=== PATIENT | female | born 1930 | race Caucasian/White ===

== ENCOUNTER 2017-04-07 07:34 | Day surgery (SDC) | payer MEDICARE, BC ==
[~2017-04-07] VITALS: Ht 165.1 cm; Wt 73.9 kg
[2017-04-07 08:25] VITALS: BP 92/60
[2017-04-07] MEDS ORDERED: LEVOTHYROXINE PO (08:29)
[2017-04-07] MEDS ORDERED: LACTATED RINGERS 1,000 ML IV SCH (08:29)
[2017-04-07] MEDS ORDERED: VITAMIN B PO (08:29)
[2017-04-07] MEDS ORDERED: AMLODIPINE PO (08:29)
[2017-04-07] MEDS ORDERED: FURO20TA3 PO (08:47)
[2017-04-07] MEDS ORDERED: CHLORHEXIDINE MOUTHWASH 15 ML UDC ONE (08:48)
[2017-04-07 09:25] LABS: ASPARTATE AMINO TRANSFERASE 277 U/L (15-37); BLOOD UREA NITROGEN 10 mg/dL (7-18)
[2017-04-07] MEDS ORDERED: PROPOFOL 10 MG/ML, 20ML ONE (09:38)
[2017-04-07] MEDS ORDERED: SUCCINYLCHOLINE 20 MG/ML, 10ML ONE (09:41)
[2017-04-07] MEDS ORDERED: FENTANYL PF 100 MCG/2ML ONE (09:42)
[2017-04-07] MEDS ORDERED: ROCURONIUM 10 MG/ML ONE (09:42)
[2017-04-07] MEDS ORDERED: GLYCOPYRROLATE 0.2MG/1ML, 5ML ONE (09:43)
[2017-04-07] MEDS ORDERED: ONDANSETRON 2MG/ML, 2ML ONE (09:56)
[2017-04-07] MEDS ORDERED: hydrALAzine 20 MG/ML, 1ML IV PRN (10:00)
[2017-04-07] MEDS ORDERED: OXYcodone 5 MG/5 ML ORAL.SOL UDC PO PRN (10:00)
[2017-04-07] MEDS ORDERED: ACETAMINOPHEN 325 MG TABLET PO PRN (10:00)
[2017-04-07] MEDS ORDERED: METOCLOPRAMIDE 5 MG/ML, 2ML IV PRN (10:00)
[2017-04-07] MEDS ORDERED: HYDROmorphone 1 MG/ML, 1ML IV PRN (10:00)
[2017-04-07] MEDS ORDERED: LABETALOL 5MG/ML, 20ML IV PRN (10:00)
[2017-04-07] MEDS ORDERED: ALBUTEROL SULFATE 2.5 MG/3 ML NPPB PRN (10:00)
[2017-04-07] MEDS ORDERED: PROMETHAZINE 25 MG/ML, 1ML IV PRN (10:00)
[2017-04-07] MEDS ORDERED: METOPROLOL 1 MG/ML, 5ML IV PRN (10:00)
[2017-04-07] MEDS ORDERED: FENTANYL PF 100 MCG/2ML IV PRN (10:00)
[2017-04-07] MEDS ORDERED: EPHEDRINE 50 MG/ML, 1ML IVPush PRN (10:00)
[2017-04-07] MEDS ORDERED: ONDANSETRON 2MG/ML, 2ML IVPush PRN (10:00)
[2017-04-07] MEDS ORDERED: OMNIPAQUE 350 MG/ML, 50 ML BOTTLE ONE (12:27)
== END 2017-04-07 14:00 | disposition home or self-care (01) ==
LOC: OUT 07:34
PROVIDERS: ATTEND Internal Medicine Gastroenterology
DX: K83.1 Obstruction of bile duct (principal); K83.8 Other specified diseases of biliary tract; I10 Essential (primary) hypertension; E03.9 Hypothyroidism, unspecified; G30.9 Alzheimer's disease, unspecified; F02.80 Dementia in other diseases classified elsewhere, unspecified severity, without behavioral disturbance, psychotic disturbance, mood disturbance, and anxiety; M06.9 Rheumatoid arthritis, unspecified; Z98.890 Other specified postprocedural states
CPT/HCPCS: 36415; 43237; 43261; 43274; 74328; 80053; 88104; 88112; 88305; 93005; C1894; C2625; J0330; J2405; J2704; J3010; J7120; Q9967; J3490